=== PATIENT | female | born 1965 | race Caucasian/White ===

== ENCOUNTER 2021-04-23 09:47 | Outpatient (REF) | payer BC, SELFPAY ==
--- NOTE | ~2021-04-23 | MM_ITS ---
EXAMINATION: MM SCREENING DIGITAL BREAST TOMOSYNTHESIS, BILATERAL CLINICAL INFORMATION: Screening. Asymptomatic. The lifetime risk of breast cancer based on the Tyrer-Cuzick Model is 13%. COMPARISON: Mammography: 05/19/2019, 05/04/2018, 02/14/2017 TECHNIQUE: Digital breast tomosynthesis is performed in both the craniocaudal and mediolateral oblique views along with computer-aided detection (CAD). Synthesized 2D images are generated from the tomosynthesis. FINDINGS: The breasts are heterogeneously dense, which may obscure small masses (ACR BI-RADS breast composition Category c). Breast tissue composition borders on average fibroglandular. There are no significant masses, abnormal calcifications, or other abnormalities. There are no significant changes from prior exams. The axilla are unremarkable. The skin contours are smooth. MM/MM tomosynthesis screening BI IMPRESSION: No mammographic evidence of malignancy. ASSESSMENT: BI-RADS 1: Negative RECOMMENDATION: Routine annual mammography screening. This patient's information was entered into a reminder system with a target due date for their next mammogram.
== END 2021-04-23 09:48 | disposition home or self-care (01) ==
LOC: HO.MAMMO 09:47
PROVIDERS: PCP Pediatrics; Visit Provider Obstetrics & Gynecology
DX: Z12.31 Encounter for screening mammogram for malignant neoplasm of breast (principal)
CPT/HCPCS: 77063; 77067

== ENCOUNTER → 2024-12-20 09:15 | Outpatient (BNV) | payer BC, SELFPAY | PROVIDERS: PCP Pediatrics; Visit Provider Internal Medicine | DX: Z12.31 Encounter for screening mammogram for malignant neoplasm of breast (principal) | CPT/HCPCS: 77063; 77067 ==

== ENCOUNTER 2024-12-20 09:24 | Outpatient (REF) | payer BC, SELFPAY ==
--- OUTSIDE RECORDS SUMMARY | 2024-12-20 10:04 | XMS_ITS | Data Portability ---
Author Organization [facility] Main Office Address [address] [facility] [address] [place] [id number] Care Team Providers Care Wire Winding Machine Tender Name Role Phone RANDOLPH MCKOY Primary Care Provider ARELIS JAIN Associate Creative Director JOAQUIN ARCE Plan Checker [phone] JERRY GRANADOS Orthopedic Surgeon [phone] FLAKO ARANDA Liability Claims Representative SWAPNA AVITIA Coloring Room Worker Assessment Encounter Date Assessment Date Assessment LastModified by Organization Details LastModified Time 07/29/2023 07/29/2023 This service was provided using telemedicine. Patient consented to video & audio visit Patient was located in the [facility]. Provider was located in the office. No other persons participated in the telemedicine visit except for the patient unless otherwise indicated here. Total time of visit was 15 minutes. [email or web address] Not available 07/29/2023 14:41:00 08/21/2023 08/21/2023 Discussed with patient the signs/symptoms warranted for a return to office visit and/or an ER visit. Patient understood and agreed with the plan. [email or web address] Not available 08/21/2023 11:36:14 Plan of Treatment Reminders Order Date Submit Date Provider Last Modified By Organization Details Last Modified Time Details Appointments None recorded. Lab CBC w/ auto diff 2024 025 [facility], [address] , [address], [address], 15:48:16 HbA1c (hemoglobin A1c), blood 2024 025 [facility], [address], [address], [place], [address], 5 15:48:16 CMP, serum or plasma 2024 025 [facility], [address], [address], [place], [address], 5 15:48:16 lipid panel, serum 2024 025 [facility] (Centralized Electronic Ordering - All Locations), Patient Can Go To The Location Of Their Choice, 5 15:48:17 TSH, ultra-sensi tive, serum 2024 025 [facility] (Centralized [facility] Ordering - All Locations), Patient Can Go To The Location Of Their Choice, 5 15:48:16 gamma-gluta myl transferase (ggt), serum 2023 024 [facility] (Centralized [facility] Ordering - All Locations), Patient Can Go To The Location Of Their Choice, 4 20:06:25 CMP, serum or plasma 2023 024 [facility] (Centralized [facility] Ordering - All Locations), Patient Can Go To The Location Of Their Choice, 4 20:06:24 HbA1c (hemoglobin A1c), blood 2023 024 [facility] ([facility]ized [facility] Ordering - All Locations), Patient Can Go To The Location Of Their Choice, 4 20:06:24 CBC w/ auto diff 2023 024 [facility] (Centralized [facility] Ordering - All Locations), Patient Can Go To The Location Of Their Choice, 4 20:06:23 HbA1c (hemoglobin A1c), blood 2022 023 [facility], [address], [address], [place], [address], 3 16:21:10 CMP, serum or plasma 2022 023 [facility], [address], [address], [place], [address], 3 16:35:13 CBC w/ auto diff 2022 023 [facility], [address], [address], [place], [address], 3 16:18:09 lipid panel, serum 2022 023 [facility], [address], [address], [place], [address], 3 16:35:14 TSH, serum or plasma 2022 023 [facility], [address], [address], [place], [address], 3 16:29:24 tissue transglutam inase iga Ab, serum 2022 023 [facility], [address], [address], [place], [address], 3 14:50:05 noninvasive colorectal cancer DNA + occult blood screening, QL, stool 2022 023 [facility] (Cologuard Orders Only), [address], [address], , [address], 4 08:18:27 Referral gynecologis t referral - Patient to schedule 2024 025 Swapna Avitia MD, [address], [place], [address], 5 15:56:48 nutritionis t/dietitian referral 2024 025 Not available 5 15:56:48 sleep medicine referral - for eval of fatigue insomnia/sn oring, rule out sleep disordered breathing. 2023 024 [facility], [address] [place], [address], 4 15:19:31 nutritionis t/dietitian referral 2022 023 [facility] Not available 3 16:46:16 Procedures None recorded. Surgeries None recorded. Imaging MAMMO, screening, bilateral - Perform Diagnostic Mammogram and Breast Ultrasound if needed / Perform Ultrasound Guided Aspiration and/or Breast Biopsy if warranted 2024 025 [email or web address] [place], [address] [place] [address] [place], [address], 5 15:56:48 Medication Orders benzonatate 100 mg capsule [address] [facility] #[id number], [address] [place], [address], 4 14:08:33 Zithromax Z-Jacques 250 mg tablet [address] [id number], [address] [place], [address], 4 14:08:02 Patient Targets Encounter Date Encounter Id Patient Goals Patient Target Last Modified By Organization Details Last Modified Time 05/14/2023 [id number] manager terminal goal of Blood Pressure 140 / 90 Not available Not available Not available manager terminal goal of Exercise level Not available Not available Not available [facility] goal of Tobacco Smoking Status Not available Not available Not available [facility] goal of Excess Body Weight Loss % 5 Not available Not available Not available Pt advised and agrees to work on self-monitoring behaviors; begin an appropriate diet for weight loss (such as a low carbohydrate diet), to do moderate exercise (such as walking) for approximately 150 minutes per week; and to identify desirable and timely rewards that will reinforce achievement of specific weight loss goals.Pt advised and agrees to eat a low salt low fat diet; to do moderate exercise (such as walking) 150 minutes per week; to limit alcohol intake (goal of 2 drinks per day or less for men or 1 for woman). and to monitor dietary sodium. Will monitor home blood pressures and bring readings to appointments. Patient preferences and goals incorporated in plan and updated/modified as needed to reflect progress toward goal. pmadden Not available 05/14/2023 10:45:18 Patient Instructions Encounter Date Encounter Id Patient Instructions Last Modified By Organization Details Last Modified Time 05/14/2023 [id number] A healthy lifestyle: care instructions pmadden Not available 05/14/2023 10:57:15 well visit, women 50 to 65: care instructions pmadden Not available 05/14/2023 10:57:15 colon cancer screening: care instructions pmadden Not available 05/14/2023 10:57:15 starting a weight loss plan: care instructions pmadden Not available 05/14/2023 10:57:15 Medications (OTC, herbal therapies, supplements) reviewed and reconciled with patient and or caregiver, including potential side effects, drug interactions, instructions, and the consequences of not taking medication. Reviewed potential barriers to medication adherence, such as side effects from medication or cost of medication. pmadden Not available 05/14/2023 10:44:05 07/29/2023 [id number] cough: care instructions pmadden Not available 07/29/2023 14:40:17 saline nasal washes: care instructions pmadden Not available 07/29/2023 14:40:17 eustachian tube problems: care instructions pmadden Not available 07/29/2023 14:40:17 COVID-19 FAQ pmadden Not available 03/2024 14:35:16 10 things to do when you have covid-19 pmadden Not available 07/29/2023 14:35:16 Follow up if no improvement or if symptoms worsen. pmadden Not available 07/29/2023 14:46:14 01/29/2024 [id number] insomnia: care instructions awychowski Not available 01/29/2024 14:42:58 snoring: care instructions awychowski Not available 01/29/2024 14:49:25 polycythemia: care instructions awychowski Not available 01/29/2024 14:42:58 11/23/2024 [id number] Cervical Cancer Screening awychowski Not available 11/23/2024 15:48:07 prediabetes: care instructions awychowski Not available 11/23/2024 15:48:06 anxiety disorder: care instructions awychowski Not available 11/23/2024 15:48:06 body mass index: care instructions awychowski Not available 11/23/2024 15:48:06 learning about healthy weight awychowski Not available 11/23/2024 15:48:06 starting a weight loss plan: care instructions awychowski Not available 11/23/2024 15:48:06 Reason for Referral 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 Referring Physician: Randolph Mckoy [facility], Encounter Date: 01/29/2024 Aeronautical Engineering Officer/dietitian Refer ral for Body mass index 30+ - obesity Referring Physician: Randolph Mckoy [facility], Encounter Date: 11/23/2024 Coloring Room Worker Referral for Sc reening for malignant neoplasm of cervix Patient to schedule Referring Physician: Randolph Mckoy [facility], Encounter Date: 11/23/2024 Results Created Date Observation Date Name Description Value Unit Range Abnormal Flag Note LastModifiedBy Organization Detail LastModifiedTime 05/14/2005/14/2023 COMPL ETE BLOOD COUNT WBC 5.5 K/mm3 (4.0-1 1.0) Not Available [facility] (Centralized Electronic Ordering - All Locations) Patient Can Go To The Location Of Their Choice, [id number] 05/14/2023 16:18:09 05/14/2005/14/2023 COMPL ETE BLOOD COUNT RBC 5.19 M/mm3 (4.20- 5.40) Not Available [facility] (Centralized Electronic Ordering - All Locations) Patient Can Go To The Location Of Their Choice, [id number] 05/14/2023 16:18:09 05/14/2005/14/2023 COMPL ETE BLOOD COUNT HGB 15.6 gm/dL (11.7- 15.5) high Not Available [facility] (Centralized Electronic Ordering - All Locations) Patient Can Go To The Location Of Their Choice, 05/14/2023 16:18:09 05/14/2005/14/2023 COMPL ETE BLOOD COUNT HCT 46.5 % (35.7- 45.8) high Not Available [facility] (Centralized Electronic Ordering - All Locations) Patient Can Go To The Location Of Their Choice, 05/14/2023 16:18:09 05/14/2005/14/2023 COMPL ETE BLOOD COUNT MCV 89.6 fL (80.0- 100.0) Not Available [facility] (Centralized Electronic Ordering - All Locations) Patient Can Go To The Location Of Their Choice, 05/14/2023 16:18:09 05/14/2005/14/2023 COMPL ETE BLOOD COUNT MCH 30.1 pg (27.0- 34.0) Not Available [facility] (Centralized Electronic Ordering - All Locations) Patient Can Go To The Location Of Their Choice, 05/14/2023 16:18:09 05/14/2005/14/2023 COMPL ETE BLOOD COUNT MCHC 33.5 g/dL (33.0- 37.0) Not Available [facility] (Centralized Electronic Ordering - All Locations) Patient Can Go To The Location Of Their Choice, 05/14/2023 16:18:09 05/14/2005/14/2023 COMPL ETE BLOOD COUNT plt 266 K/mm3 (150-4 60) Not Available [facility] (Centralized Electronic Ordering - All Locations) Patient Can Go To The Location Of Their Choice, 05/14/2023 16:18:09 05/14/2005/14/2023 COMPL ETE BLOOD COUNT RDW-SD 45.4 fL (<47.0 ) Not Available [facility] (Centralized Electronic Ordering - All Locations) Patient Can Go To The Location Of Their Choice, 05/14/2023 16:18:09 05/14/2005/14/2023 COMPL ETE BLOOD COUNT MPV 10.7 fL (9.4-1 2.4) Not Available [facility] (Centralized Electronic Ordering - All Locations) Patient Can Go To The Location Of Their Choice, 05/14/2023 16:18:09 05/14/20 23 05/14/2023 COMPL ETE BLOOD COUNT automated NRBC 0.0 #/100 _WBC' s Not Available [facility] (Centralized Electronic Ordering - All Locations) Patient Can Go To The Location Of Their Choice, 05/14/2023 16:18:09 05/14/2005/14/2023 COMPL ETE BLOOD COUNT abs. NRBC 0.0 K/mm3 Not Available [facility] (Centralized Electronic Ordering - All Locations) Patient Can Go To The Location Of Their Choice, 05/14/2023 16:18:09 05/14/2005/14/2023 HEMOG LOBIN A1C hemoglobin A1C 5.7 % (4.0-5 .6) high MONIT ORING : In known diabe tic patie nts, hemog lobin A1c targe ts shoul d be discu ssed with healt h care provi shante. DIAGN OSTIC USE: The Ameri can Diabe aundrea Assoc iatio n (ADA) and the World [facility] izati on (WHO) recom mend the use of HbA1c to diagn ose diabe aundrea using a thres hold of 6.5%. Patie nts who have an HbA1c betwe en 5.7% and 6.4% are consi dered at incre ased risk for devel oping diabe aundrea in the futur eViolette MARCUMTI ON: False ly low HbA1c resul ts may be obser janeth in patie nts with hemol ytic anemi a, homoz ygous forms of abnor mal hemog lobin (e.g. SS, CC, SC), pregn chris, recen t blood loss or hemog lobin F great er than 7%. Fruct osami ne may be used as an alter estela test in these cases . REFER ENCE: ADA: Stand ards of Medic al Care in Diabe aundrea 2019, The Journ al of Clini julianne and Appli ed Resea [facility] and Educa tion Volum e 43, Suppl ement 1 Not Available [facility] (Centralized Electronic Ordering - All Locations) Patient Can Go To The Location Of Their Choice, 05/14/2023 16:21:10 05/14/2005/14/2023 TSH WITH REFLE X TO FT4 TSH 1.50 uIU/m L (0.4-4 .2) Not Available [facility] (Centralized Electronic Ordering - All Locations) Patient Can Go To The Location Of Their Choice, 05/14/2023 16:29:24 05/14/2005/14/2023 COMPR EHENS CHANCE METAB OLIC PANL glucose 99 mg/dL (70-99 ) Not Available [facility] (Centralized Electronic Ordering - All Locations) Patient Can Go To The Location Of Their Choice, 05/14/2023 16:35:13 05/14/2005/14/2023 COMPR EHENS CHANCE METAB OLIC PANL BUN 14 mg/dL (6-20) Not Available [facility] (Centralized Electronic Ordering - All Locations) Patient Can Go To The Location Of Their Choice, 05/14/2023 16:35:13 05/14/2005/14/2023 COMPR EHENS CHANCE METAB OLIC PANL creatinine 0.7 mg/dL (0.5-1 .0) Not Available [facility] (Centralized Electronic Ordering - All Locations) Patient Can Go To The Location Of Their Choice, 05/14/2023 16:35:13 05/14/2005/14/2023 COMPR EHENS CHANCE METAB OLIC PANL sodium 139 mmol/ L (133-1 45) Not Available [facility] (Centralized Electronic Ordering - All Locations) Patient Can Go To The Location Of Their Choice, 05/14/2023 16:35:13 05/14/2005/14/2023 COMPR EHENS CHANCE METAB OLIC PANL potassium 4.2 mmol/ L (3.6-5 .2) Not Available [facility] (Centralized Electronic Ordering - All Locations) Patient Can Go To The Location Of Their Choice, 05/14/2023 16:35:13 05/14/2005/14/2023 COMPR EHENS CHANCE METAB OLIC PANL chloride 102 mmol/ L (98-10 7) Not Available [facility] (Centralized Electronic Ordering - All Locations) Patient Can Go To The Location Of Their Choice, 05/14/2023 16:35:13 05/14/2005/14/2023 COMPR EHENS CHANCE METAB OLIC PANL bicarbonate 26 mmol/ L (22-29 ) Not Available [facility] (Centralized Electronic Ordering - All Locations) Patient Can Go To The Location Of Their Choice, 05/14/2023 16:35:13 05/14/2005/14/2023 COMPR EHENS CHANCE METAB OLIC PANL anion gap 11 (4-17) Not Available [facility] (Centralized Electronic Ordering - All Locations) Patient Can Go To The Location Of Their Choice, 05/14/2023 16:35:13 05/14/2005/14/2023 COMPR EHENS CHANCE METAB OLIC PANL albumin 5.0 gm/dL (3.4-4 .8) high Not Available [facility] (Centralized Electronic Ordering - All Locations) Patient Can Go To The Location Of Their Choice, 05/14/2023 16:35:13 05/14/2005/14/2023 COMPR EHENS CHANCE METAB OLIC PANL calcium 10.0 mg/dL (8.6-1 0.5) Not Available [facility] (Centralized Electronic Ordering - All Locations) Patient Can Go To The Location Of Their Choice, 05/14/2023 16:35:13 05/14/2005/14/2023 COMPR EHENS CHANCE METAB OLIC PANL bilirubin,to josephine 0.8 mg/dL (0-1.2 ) Not Available [facility] (Centralized Electronic Ordering - All Locations) Patient Can Go To The Location Of Their Choice, 05/14/2023 16:35:13 05/14/2005/14/2023 COMPR EHENS CHANCE METAB OLIC PANL total protein 7.6 gm/dL (6.2-8 .2) Not Available [facility] (Centralized Electronic Ordering - All Locations) Patient Can Go To The Location Of Their Choice, 05/14/2023 16:35:13 05/14/2005/14/2023 COMPR EHENS CHANCE METAB OLIC PANL Ag ratio 1.9 Not Available [facility] (Centralized Electronic Ordering - All Locations) Patient Can Go To The Location Of Their Choice, 05/14/2023 16:35:13 05/14/2005/14/2023 COMPR EHENS CHANCE METAB OLIC PANL AST 33 U/L (0-32) high Not Available [facility] (Centralized Electronic Ordering - All Locations) Patient Can Go To The Location Of Their Choice, 05/14/2023 16:35:13 05/14/2005/14/2023 COMPR EHENS CHANCE METAB OLIC PANL alk phos 111 U/L (35-10 4) high Not Available [facility] (Centralized Electronic Ordering - All Locations) Patient Can Go To The Location Of Their Choice, 05/14/2023 16:35:13 05/14/2005/14/2023 COMPR EHENS CHANCE METAB OLIC PANL ALT 40 U/L (0-33) high Not Available [facility] (Centralized Electronic Ordering - All Locations) Patient Can Go To The Location Of Their Choice, 05/14/2023 16:35:13 05/14/2005/14/2023 COMPR EHENS CHANCE METAB OLIC PANL estimated GFR creatinine 103 mL/mi n/1.7 3_M2 Creat inine based estim ated glome rular filtr ation (eGFR ) in adult s is calcu lated using the Natio nal Kidne y Found ation recom bismark d 2020 CKD-E PI equat ion. Estim ates GFR from serum creat inine , age and sex. Not Available [facility] (Centralized Electronic Ordering - All Locations) Patient Can Go To The Location Of Their Choice, 05/14/2023 16:35:13 05/14/2005/14/2023 LIPID PANEL cholesterol, total 240 mg/dL (<200) high Not Available [facility] ([facility] - All Locations) Patient Can Go To The Location Of Their Choice, 05/14/2023 16:35:14 05/14/2005/14/2023 LIPID PANEL triglyceride 173 mg/dL (<150) high Not Available [facility] Locations) Patient Can Go To The Location Of Their Choice, 05/14/2023 16:35:14 05/14/2005/14/2023 LIPID PANEL HDL chol 57 mg/dL (>39) Not Available [facility] (Centralized Electronic Ordering - All Locations) Patient Can Go To The Location Of Their Choice, 05/14/2023 16:35:14 05/14/2005/14/2023 LIPID PANEL LDL cholesterol, calculated 148 mg/dL (0-130 ) high Not Available [facility] (Centralized Electronic Ordering - All Locations) Patient Can Go To The Location Of Their Choice, 05/14/2023 16:35:14 05/14/20 23 05/14/2023 LIPID PANEL non HDL cholesterol (calc) 183 mg/dL (<160) high Not Available [facility] ([facility] Order[facility] - All Locations) Patient Can Go To The Location Of Their Choice, 05/14/2023 16:35:14 05/14/2005/15/2023 TISSU E TRANS GLUTA MELINA E IGA tissue transglutami nase IgA <0.5 U/mL (0-14. 9) A negat chance tTG IgA resul t in an untre ated patie nt does not rule out venice c disea se. This findi ng can often be expla ined by selec tive IgA defic iency . Testi ng perfo rmed by the Bio-R ad BioPl ex 2200 multi plex flow immun oassa y syste m Not Available [facility] (Centralized Electronic Ordering - All Locations) Patient Can Go To The Location Of Their Choice, 05/15/2023 14:50:05 08/08/19 24 08/08/2023 COMPL ETE BLOOD COUNT WBC 6.0 K/mm3 (4.0-1 1.0) Not Available [facility] (Centralized Electronic Ordering - All Locations) Patient Can Go To The Location Of Their Choice, 08/08/2023 15:50:35 08/08/19 24 08/08/2023 COMPL ETE BLOOD COUNT RBC 5.14 M/mm3 (4.20- 5.40) Not Available [facility] ([facility]ized Electronic Ordering - All Locations) Patient Can Go To The Location Of Their Choice, 08/08/2023 15:50:35 08/08/19 24 08/08/2023 COMPL ETE BLOOD COUNT HGB 14.9 gm/dL (11.7- 15.5) Not Available [facility] ([facility]ized Electronic Ordering - All Locations) Patient Can Go To The Location Of Their Choice, 08/08/2023 15:50:35 08/08/1908/08/2023 COMPL ETE BLOOD COUNT HCT 46.4 % (35.7- 45.8) high Not Available [facility] ([facility]ized Electronic Ordering - All Locations) Patient Can Go To The Location Of Their Choice, 08/08/2023 15:50:35 08/08/1908/08/2023 COMPL ETE BLOOD COUNT MCV 90.3 fL (80.0- 100.0) Not Available [facility] (Centralized Electronic Ordering - All Locations) Patient Can Go To The Location Of Their Choice, 08/08/2023 15:50:35 08/08/1908/08/2023 COMPL ETE BLOOD COUNT MCH 29.0 pg (27.0- 34.0) Not Available [facility] ([facility]ized Electronic Ordering - All Locations) Patient Can Go To The Location Of Their Choice, 08/08/2023 15:50:35 08/08/1908/08/2023 COMPL ETE BLOOD COUNT MCHC 32.1 g/dL (33.0- 37.0) low Not Available [facility] ([facility]ized Electronic Ordering - All Locations) Patient Can Go To The Location Of Their Choice, 08/08/2023 15:50:35 08/08/1908/08/2023 COMPL ETE BLOOD COUNT plt 303 K/mm3 (150-4 60) Not Available [facility] (Centralized Electronic Ordering - All Locations) Patient Can Go To The Location Of Their Choice, 08/08/2023 15:50:35 08/08/1908/08/2023 COMPL ETE BLOOD COUNT RDW-SD 45.0 fL (<47.0 ) Not Available [facility] (Centralized Electronic Ordering - All Locations) Patient Can Go To The Location Of Their Choice, 08/08/2023 15:50:35 08/08/1908/08/2023 COMPL ETE BLOOD COUNT MPV 10.1 fL (9.4-1 2.4) Not Available [facility] ([facility]ized Electronic Ordering - All Locations) Patient Can Go To The Location Of Their Choice, 08/08/2023 15:50:35 08/08/1908/08/2023 COMPL ETE BLOOD COUNT automated NRBC 0.0 #/100 _WBC' s Not Available [facility] (Centralized Electronic Ordering - All Locations) Patient Can Go To The Location Of Their Choice, 08/08/2023 15:50:35 08/08/1908/08/2023 COMPL ETE BLOOD COUNT abs. NRBC 0.0 K/mm3 Not Available [facility] (Centralized Electronic Ordering - All Locations) Patient Can Go To The Location Of Their Choice, 08/08/2023 15:50:35 08/08/1908/09/2023 ERYTH ROPOI ETIN erythropoiet in 6.7 Refer ence range : 2.6 to 18.5 Unit: mIU/m L (NOTE ) Beckm an Coult er UniCe l DxI 800 Immun oassa y Syste m Value s obtai rose with diffe rent assay metho ds or kits canno t be used inter khoury eably . Resul ts canno t be inter prete d as absol usama evide nce of the prese nce or absen ce of martínez ji se. Test perfo rmed by [facility], [address], [place] [address] Not Available [facility] (Centralized Electronic Ordering - All Locations) Patient Can Go To The Location Of Their Choice, 08/09/2023 08:08:19 08/08/1908/14/2023 JAK2 V617F MUTAT ION W/INT ERPRE TATIO N jak2 mutation analysis (neg) normal NEGAT CHANCE NEGAT CHANCE FOR THE V617F MUTAT ION This mark sis did NOT ident yvrose the prese nce of the V617F mutat ion in eithe r the heter ozygo us or homoz ygous state . This mutat ion can be assoc iated with certa in myelo proli ferat chance/m yelod yspla stic neopl asms and/o r incre ased throm bophi maribel risk. This resul t shoul d be inter prete d in combi natio n with other clini julianne and labor atory findi ngs. The somat ic point mutat ion at codon 617 withi n the JAK2 gene resul ts in a pheny lalan ine subst ituti on for valpaola e. This mutat ion resul ts in const ituti ve JAK2 activ ity and enhan claudine JAK2- STAT signa ling. DNA extra cted from perip heral blood leuko cytes was mark zed by real- time PCR using the [employer] z480. Fluor escen tly label ed probe s were utili zed for allel ic discr imina tion. This assay 's lower limit of detec tion will ident yvrose a 5.0% popul ation of mutan t allel es in a backg round of wild type allel es. While DNA testi ng is very accur ate, rare diagn ostic error s due to vario us pre- and post- mark tical varia bles do occur . Refer ences : Jake t. 365:1 054-1 061, 2004, Blood . 106: 2162- 2168, 2004, Who Class ifica tion of [place] rs of Haema topoi etic and Lymph oid Tissu e. 4th ed., [facility] on, 2007. This test was devel oped and it's perfo rmanc e terri cteri stics deter mined by Kaila ate Refer ence Labor atori es. It has not been clear ed or appro janeth by the [place] FDA. The FDA has deter mined that such clear ance is not neces karol. This labor atory is certi fied under CLIA 88 as quali fied to perfo rm high compl exity clini julianne labor atory testi ng. Not Available [facility] (Centralized Electronic Ordering - All Locations) Patient Can Go To The Location Of Their Choice, [id number] 08/14/2023 13:39:05 08/08/19 24 08/14/2023 JAK2 V617F MUTAT ION W/INT ERPRE TATIO N jak2 pathologist INTERP RETED BY NERI IN [facility] [place] Not Available [facility] (Centralized Electronic Ordering - All Locations) Patient Can Go To The Location Of Their Choice, [id number] 08/14/2023 13:39:05 01/29/20 24 01/30/2024 CBC WITH DIFFE RENTI AL/PL ATELE T WBC 6.9 x10e3 /uL 3.4-10 .8 Not Available [facility] ([facility]) [address] [facility] [address], [place], [address], 01/30/2024 20:06:23 01/29/20 24 01/30/2024 CBC WITH DIFFE RENTI AL/PL ATELE T RBC 5.13 x10e6 /uL 3.77-5 .28 Not Available [facility] ([facility]) [address] [facility], [place] [place], [address], 01/30/2024 20:06:23 01/29/20 24 01/30/2024 CBC WITH DIFFE RENTI AL/PL ATELE T hemoglobin 15.3 g/dL 11.1-1 5.9 Not Available [facility] ([facility]) [address] [facility], [place], [address], 01/30/2024 20:06:23 01/29/20 24 01/30/2024 CBC WITH DIFFE RENTI AL/PL ATELE T hematocrit 48.5 % 34.0-4 6.6 above high normal Not Available [facility] ([facility]) [address] [place], [address], 01/30/2024 20:06:23 01/29/20 24 01/30/2024 CBC WITH DIFFE RENTI AL/PL ATELE T MCV 95 fL 79-97 Not Available [facility] ([facility]) [address] [place], [address], 01/30/2024 20:06:23 01/29/20 24 01/30/2024 CBC WITH DIFFE RENTI AL/PL ATELE T MCH 29.8 pg 26.6-3 3.0 Not Available [facility] ([facility]) [address] [place], [address], 01/30/2024 20:06:23 01/29/20 24 01/30/2024 CBC WITH DIFFE RENTI AL/PL ATELE T MCHC 31.5 g/dL 31.5-3 5.7 Not Available [facility] ([facility]) [address] [facility], [place], [address], 01/30/2024 20:06:23 01/29/20 24 01/30/2024 CBC WITH DIFFE RENTI AL/PL ATELE T RDW 13.9 % 11.7-1 5.4 Not Available [facility] ([facility]) [address] [facility], [place], [address], 01/30/2024 20:06:23 01/29/20 24 01/30/2024 CBC WITH DIFFE RENTI AL/PL ATELE T platelets 259 x10e3 /uL 150-45 0 Not Available [facility] ([facility]) [address] [facility], [place], [address], 01/30/2024 20:06:23 01/29/20 24 01/30/2024 CBC WITH DIFFE RENTI AL/PL ATELE T neutrophils 60 % not estab. Not Available [facility] ([facility]) [address] [facility], [place], [address], 01/30/2024 20:06:23 01/29/20 24 01/30/2024 CBC WITH DIFFE RENTI AL/PL ATELE T lymphs 25 % not estab. Not Available [facility] ([facility]) [address] [facility], [place], [address], 01/30/2024 20:06:23 01/29/20 24 01/30/2024 CBC WITH DIFFE RENTI AL/PL ATELE T monocytes 6 % not estab. Not Available [facility] ([facility]) [address] [facility], [place], [address], 01/30/2024 20:06:23 01/29/20 24 01/30/2024 CBC WITH DIFFE RENTI AL/PL ATELE T eos 8 % not estab. Not Available [facility] ([facility]) [address] [facility], [place], [address], 01/30/2024 20:06:23 01/29/20 24 01/30/2024 CBC WITH DIFFE RENTI AL/PL ATELE T basos 1 % not estab. 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 0 Not Available [facility] ([facility]) [address] [place], [address], 01/30/2024 20:06:23 01/29/20 24 01/30/2024 CBC WITH DIFFE RENTI AL/PL ATELE T lymphs (absolute) 1.7 x10e3 /uL 0.7-3. 1 Not Available [facility] ([facility]) [address] [place], [address], 01/30/2024 20:06:23 01/29/20 24 01/30/2024 CBC WITH DIFFE RENTI AL/PL ATELE T monocytes(ab solute) 0.4 x10e3 /uL 0.1-0. 9 Not Available [facility] ([facility]) [address] [place], [address], 01/30/2024 20:06:23 01/29/20 24 01/30/2024 CBC WITH DIFFE RENTI AL/PL ATELE T eos (absolute) 0.6 x10e3 /uL 0.0-0. 4 above high normal Not Available [facility] ([facility]) [address] [place], [address], 01/30/2024 20:06:23 01/29/20 24 01/30/2024 CBC WITH DIFFE RENTI AL/PL ATELE T baso (absolute) 0.1 x10e3 /uL 0.0-0. 2 Not Available [facility] ([facility]) [address] [facility], [place], [address], 01/30/2024 20:06:23 01/29/20 24 01/30/2024 CBC WITH DIFFE RENTI AL/PL ATELE T immature granulocytes 0 % not estab. Not Available [facility] ([facility]) [address] [facility], [place], [address], 01/30/2024 20:06:23 01/29/20 24 01/30/2024 CBC WITH DIFFE RENTI AL/PL ATELE T immature grans (abs) 0.0 x10e3 /uL 0.0-0. 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 METAB OLIC PANEL (14) glucose 110 mg/dL 70-99 above high normal Not Available [facility] ([facility]) [address] [facility], [place], [address], 01/30/2024 20:06:24 01/29/20 24 01/30/2024 COMP. METAB OLIC PANEL (14) BUN 14 mg/dL 6-24 Not Available [facility] ([facility]) [address] [facility], [place], [address], 01/30/2024 20:06:24 01/29/20 24 01/30/2024 COMP. METAB OLIC PANEL (14) creatinine 0.64 mg/dL 0.57-1 .00 Not Available [facility] ([facility]) [address] [facility], [place], [address], 01/30/2024 20:06:24 01/29/20 24 01/30/2024 COMP. METAB OLIC PANEL (14) eGFR 103 mL/mi n/1.7 3 >59 Not Available [facility] ([facility]) [address] [place], [address], 01/30/2024 20:06:24 01/29/20 24 01/30/2024 COMP. METAB OLIC PANEL (14) BUN/creatini ne ratio 22 9-23 Not Available [facility] ([facility]) [address] [place], [address], 01/30/2024 20:06:24 01/29/20 24 01/30/2024 COMP. METAB OLIC PANEL (14) sodium 143 mmol/ L 134-14 4 Not Available [facility] ([facility]) [address] [place], [address], 01/30/2024 20:06:24 01/29/20 24 01/30/2024 COMP. METAB OLIC PANEL (14) potassium 3.9 mmol/ L 3.5-5. 2 Not Available [facility] ([facility]) [address] [place], [address], 01/30/2024 20:06:24 01/29/20 24 01/30/2024 COMP. METAB OLIC PANEL (14) chloride 101 mmol/ L 96-106 Not Available [facility] ([facility]) [address] [facility] [place] [address], 01/30/2024 20:06:24 01/29/20 24 01/30/2024 COMP. METAB OLIC PANEL (14) carbon dioxide, total 25 mmol/ L 20-29 Not Available [facility] ([facility]) [address] [facility] [place], [address], 01/30/2024 20:06:24 01/29/20 24 01/30/2024 COMP. METAB OLIC PANEL (14) calcium 10.1 mg/dL 8.7-10 .2 Not Available [facility] ([facility]) [address] [facility], [place], [address], 01/30/2024 20:06:24 01/29/20 24 01/30/2024 COMP. METAB OLIC PANEL (14) protein, total 7.5 g/dL 6.0-8. 5 Not Available [facility] ([facility]) [address] [facility] [place], [address], 01/30/2024 20:06:24 01/29/20 24 01/30/2024 COMP. METAB OLIC PANEL (14) albumin 4.6 g/dL 3.8-4. 9 Not Available [facility] ([facility]) [address] [facility] [place], [address], 01/30/2024 20:06:24 01/29/20 24 01/30/2024 COMP. METAB OLIC PANEL (14) globulin, total 2.9 g/dL 1.5-4. 5 Not Available [facility] ([facility]) [address] [facility] [place], [address], 01/30/2024 20:06:24 01/29/20 24 01/30/2024 COMP. METAB OLIC PANEL (14) bilirubin, total 0.4 mg/dL 0.0-1. 2 Not Available [facility] ([facility]) [address] [place], [address], 01/30/2024 20:06:24 01/29/20 24 01/30/2024 COMP. METAB OLIC PANEL (14) alkaline phosphatase 120 IU/L 44-121 Not Available [facility] ([facility]) [address] [place], [address], 01/30/2024 20:06:24 01/29/20 24 01/30/2024 COMP. METAB OLIC PANEL (14) AST (SGOT) 25 IU/L 0-40 Not Available [facility] ([facility]) [address] [place], [address], 01/30/2024 20:06:24 01/29/20 24 01/30/2024 COMP. METAB OLIC PANEL (14) ALT (SGPT) 29 IU/L 0-32 Not Available [facility] ([facility]) [address] [facility], [place], [address], 01/30/2024 20:06:24 01/29/20 24 01/30/2024 HEMOG LOBIN A1C hemoglobin A1C 5.9 % 4.8-5. 6 above high normal Predi abete s: 5.7 - 6.4 Diabe aundrea: >6.4 Glyce viral contr ol for adult s with diabe aundrea: <7.0 Not Available [facility] ([facility]) [address] [place], [address], 01/30/2024 20:06:24 01/29/20 24 01/30/2024 GGT GGT 15 IU/L 0-60 Not Available [facility] ([facility]) [address] [place], [address], 01/30/2024 20:06:25 11/26/19 25 04/23/2021 MAMMO , scree ricco, bilat eral No observ ation record ed. [email or web address] [facility] [address] [place], [address], 11/25/2024 14:37:52 Result Notes None recorded. Problems Name Problem SNOMED Code Status Onset Date Resolution Date Notes Provider Name and Address Organization Details Recorded Time Screenin g for malignan t neoplasm of cervix Completed 201202/28/2014 RECORDED 3 2:48PM BY LAURA TARIQ MA, ANNABEL Reynolds/LUIS Mckoy MD [address] [facility] [address], [facility] [place], [address], [facility] 6 15:10:48 Contrace ption care manageme nt Completed 201202/28/2014 IMPRESSIO N: TOLERATIN G WELL. RX REFILLED. ; RECORDED 3 2:48PM BY LAURA TARIQ MA, ANNOTATIO N/LUIS Mckoy MD [address] [facility] [address], [place], [address], [facility] 6 15:10:48 Dysuria [id number] Completed 201202/28/2014 IMPRESSIO N: UA UNREMARKA BLE, AND PT HAS HISTORY OF CYSTITIS. DIETARY MODIFICAT IONS DISCUSSED . REFER BACK TO UROLOGY IF PERSISTAN T/WORSE.; RECORDED 3 2:48PM BY LAURA TARIQ MA, ANNOTATIO N/LUIS Mckoy MD [address], [place] [place], [address], [facility] 6 15:10:48 Elevated blood-pr essure reading without diagnosi s of hyperten lino [id number] Completed 201202/28/2014 RECORDED 3 2:48PM BY LAURA TARIQ MA, ANNOTATIO N/LUIS Mckoy MD [address] [facility] [address], [place], [address], [facility] 6 15:10:48 Adult health examinat ion Completed 201202/28/2014 IMPRESSIO N: WILL UPDATE IMMUNIZAT ION STATUS AND SCREEN BASED ON RISK FACTORS. REGULAR DENTAL CARE AND SEATBELT USE ADVISED. DISTRACTE D DRIVING DISCUSSED . PT REPORTS THAT ROUTINE PAP IS UTD. WILL ATTEMPT TO TRACK DOWN RECORDS FROM DR JAMIL .; RECORDED 3 2:48PM BY LAURA TARIQ MA, ANNABEL Reynolds/LUIS Mckoy MD [address], [place], [address], [facility] 6 15:10:48 Pure hypergly ceridemi a [id number] Completed 201302/28/2014 IMPRESSIO N: WILL REASSESS AND IF PERSISTAN T WITH ADEQUATE FASTING WILL DISCUSS TREATMENT OPTIONS.; RECORDED 4 3:33PM BY ANNABEL CANTU/LUIS Mckoy MD [address], [place], [address], [facility] 6 15:10:48 Knee pain Completed 201308/17/2014 RECORDED 4 4:25PM BY ELOY KENNEDY PA-C, OFFICE VISIT Randolph Mckoy MD [address] [facility] [address], [place], [address], [facility] 5 15:41:46 Low back pain 374996307 Completed 201306/30/2018 Randolph Mckoy MD [address], [place], [address], [facility] 8 14:56:47 Administ ration of diphther ia and tetanus vaccine Completed 201202/28/2014 RECORDED 3 2:47PM BY LAUAR TARIQ MA, ANNABEL Reynolds/LUIS Mckoy MD [address], [place], [address], [facility] 6 15:10:48 Backache 379893501 Completed 10/16/2015 Randolph Mckoy MD [address], [place], [address], [facility] 6 15:10:48 Disorder of lumbar disc 973525024 Active L4/L5, L5/S1 without nerve impingmen t Randolph Mckoy MD [address], [place], [address], [facility] 6 15:10:48 Body mass index 25-29 - overweig ht 579602167 Completed 11/29/2016 Randolph Mckoy MD [address], [place], [address], [facility] 7 14:55:52 Achilles tendinit is 69677132 Active Randolph Mckoy MD [address], [place], [address], [facility] 6 15:10:48 Fatigue 95045356 Completed 10/16/2015 Randolph Mckoy MD [address], [place], [address], [facility] 6 15:10:48 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 907345428 Completed 11/29/2016 Randolph Mckoy MD [address], [place], [address], [facility] 7 14:55:38 Loose stool 460626725 Completed 10/16/2015 Randolph Mckoy MD [address], [place], [address], [facility] 6 15:10:48 Neck pain 74999580 Completed 06/30/2018 Randolph Mckoy MD [address], [place], [address], [facility] 8 14:57:19 Hypercho lesterol emia 97828258 Active Randolph Mckoy MD [address], [place], [address], [facility] 6 15:10:48 Hypertri glycerid emia 878747303 Active Randolph Mckoy MD [address], [place], [address], [facility] 6 16:55:09 Hirsutis m 093263875 Active Randolph Mckoy MD [address], [place], [address], [facility] 6 15:10:48 Verruca plantari s 92594271 Completed 06/30/2018 Randolph Mckoy MD [address], [place], [address], [facility] 8 14:57:01 Indigest ion 059227021 Completed 06/30/2018 Randolph Mckoy MD [address], [place], [address], [facility] 8 14:55:38 Eosinoph ilic esophagi tis 551754203 Active Randolph Mckoy MD [address], [place], [address], [facility] 6 15:10:48 Knee pain Completed 11/23/2024 Randolph Mckoy MD [address], [place], [address], [facility] 5 15:41:46 Hemorrho ids 99232385 Active Randolph Mckoy MD [address], [place], [address], [facility] 6 15:10:48 Upper respirat ory infectio n 32706763 Completed 10/16/2015 Randolph Mckoy MD [address] [facility] [address], [place], [address], [facility] 6 15:10:48 Influenz a-like illness 71855205 Completed 10/16/2015 Randolph Mckoy MD [address] [facility] [address], [place], [address], [facility] 6 15:10:48 Dizzines s 337628229 Completed 11/29/2016 Randolph Mckoy MD [address] [facility] [address], [place], [address], [facility] 7 14:53:58 Benign paroxysm al position al vertigo 715731967 Active Randolph Mckoy MD [address] [facility] [address], [place], [address], [facility] 6 12:25:53 Vertigo 181233454 Completed 06/30/2018 Randolph Mckoy MD [address] [facility] [address], [place], [address], [facility] 8 14:54:47 Genital herpes simplex 47579662 Active 2016 Randolph Mckoy MD [address] [facility] [address], [place], [address], [facility] 7 15:05:40 Disorder of patellof emoral joint 450340675 Active 2016 Randolph Mckoy MD [address] [facility] [address], [place], [address], [facility] 7 21:32:15 Ganglion cyst Completed 201710/05/2020 feet Randolph Mckoy MD [address], [place], [address], [facility] 1 14:28:44 Gastroes ophageal reflux disease 163027952 Active 2017 Randolph Mckoy MD [address], [place], [address], [facility] 8 14:55:47 Plantar fasciiti s 432578710 Completed 201811/23/2024 bilateral Randolph Mckoy MD [address], [place], [address], [facility] 5 15:42:12 Calcanea l spur 38574235 Active 2018 Randolph Mckoy MD [address], [place], [address], [facility] 9 22:34:09 Hammer toe 245504674 Active 2018 Randolph Mckoy MD [address], [place], [address], [facility] 9 22:34:23 Fibromya lgia 337403535 Active 2018 Randolph Mckoy MD [address], [place], [address], [facility] 9 22:43:08 Moderate major depressi on, single episode 92736260 Active 2019 America herrera, [facility] 0 11:26:25 Body mass index 30+ - obesity 422885071 Active 2020 Randolph Mckoy MD [address], [place], [address], [facility] 5 15:31:55 Impaired fasting glycemia 678164910 Active 2020 Randolph Mckoy MD [address], [place], [address], [facility] 1 17:00:09 Liver enzymes outside referenc e range 318804790 Completed 202011/23/2024 Randolph Mckoy MD [address], [place], [address], [facility] 5 15:42:02 Steatoti c liver disease 419228356 Active 2021 Randolph Mckoy MD [address], [place], [address], [facility] 2 14:32:17 Hiatal hernia 58919421 Active 2021 type 1 Randolph Mckoy MD [address], [place], [address], [facility] 2 17:02:45 Esophage al dysmotil ity 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 Active 2021 Randolph Mckoy MD [address], [place], [address], [facility] 2 17:02:54 Prediabe aundrea 437681084 Active 2022 Bakari Cabrera PA-C [address], [place], [address], [facility] 3 10:55:57 Erythroc ytosis 764253435 Active 2022 Bakari Cabrera PA-C [address], [place], [address], [facility] 3 09:01:45 Anxiety state 740918140 Active 2013 Randolph Mckoy MD [address], [place], [address], [facility] 6 15:10:48 Screenin g for malignan t neoplasm of cervix Completed 201202/01/2014 RECORDED 3 2:48PM BY LAURA TARIQ MA, ANNABEL Reynolds/LUIS Mckoy MD [address] [facility] [address], [place], [address], [facility] 6 15:10:48 Contrace ption care manageme nt Completed 201202/01/2014 IMPRESSIO N: TOLERATIN G WELL. RX REFILLED. ; RECORDED 3 2:48PM BY LAURA TARIQ MA, ANNABEL Reynolds/LUIS Mckoy MD [address] [facility] [address], [place] [place], [address], [facility] 6 15:10:48 Cystitis 80169972 Completed 201311/23/2024 Randolph Mckoy MD [address] [facility] [address], [place], [address], [facility] 5 15:40:43 Dysuria 90403405 Completed 201202/01/2014 IMPRESSIO N: UA UNREMARKA BLE, AND PT HAS HISTORY OF CYSTITIS. DIETARY MODIFICAT IONS DISCUSSED . REFER BACK TO UROLOGY IF PERSISTAN T/WORSE.; RECORDED 3 2:48PM BY LAURA TARIQ MA, ANNABEL Reynolds/LUIS Mckoy MD [address] [facility] [address], [place] [place], [address], [facility] 6 15:10:48 Elevated blood-pr essure reading without diagnosi s of hyperten lino 162466349 Completed 201202/01/2014 RECORDED 3 2:48PM BY LAURA TARIQ MA, ANNABEL Reynolds/LUIS Mckoy MD [address] [facility] [address], [place], [address], [facility] 6 15:10:48 Adult health examinat ion Completed 201202/01/2014 IMPRESSIO N: WILL UPDATE IMMUNIZAT ION STATUS AND SCREEN BASED ON RISK FACTORS. REGULAR DENTAL CARE AND SEATBELT USE ADVISED. DISTRACTE D DRIVING DISCUSSED . PT REPORTS THAT ROUTINE PAP IS UTD. WILL ATTEMPT TO TRACK DOWN RECORDS FROM DR JAMIL .; RECORDED 3 2:48PM BY LAURA TARIQ MA, ANNABEL Reynolds/LUIS Mckoy MD [address], [place], [address], [facility] 6 15:10:48 Pure hypergly ceridemi a 928088623 Completed 201202/01/2014 IMPRESSIO N: WILL REASSESS AND IF PERSISTAN T WITH ADEQUATE FASTING WILL DISCUSS TREATMENT OPTIONS.; RECORDED 3 4:06PM BY RANDOLPH MCKOY MD, ANNABEL Reynolds/LUIS Mckoy MD [address], [place], [address], [facility] 6 15:10:48 Insomnia 897536568 Active 2013 Randolph Mckoy MD [address], [place], [address], [facility] 6 15:10:48 Patient status finding [id number] Completed 201202/01/2014 RECORDED 3 2:48PM BY LAURA TARIQ MA, ANNABEL Reynolds/LUIS Mckoy MD [address], [place], [address], [facility] 6 15:10:48 Obesity 840371884 Completed 201311/29/2016 Randolph Mckoy MD [address], [place], [address], [facility] 7 14:56:17 Palpitat ions 23683226 Completed 201308/17/2014 IMPRESSIO N: PT HAS HAD A NL ECHO/ECG IN THE PAST. HOLTER MONITOR DISCUSSED /OFFERED ALTHOUGH I SUSPECT UNDERLYIN G ANXIETY MAY BE CONTRIBUT ING HERE. PT WILL CALL IF INTERESTE D IN PURSUING OR SYMPTOMS WORSEN/CH ZAC.; RECORDED 4 3:33PM BY ALO RICHMOND, OFFICE VISIT Randolph Mckoy MD [address], [facility] [place], [address], [facility] 6 15:10:48 Administ ration of diphther ia and tetanus vaccine Completed 201202/01/2014 RECORDED 3 2:47PM BY LAURA TARIQ MA, ANNOTATIO N/ADDENDU M Randolph Mckoy MD [address] [facility] [address], [place], [address], [facility] 6 15:10:48 Problem Notes None recorded. Procedures Surgical History Date Name Laterality Status Provider Name and Address Organization Details Recorded Time 024 Cologuard completed Ana María Squires [facility] 04/02/2024 10:30:46 021 Most Recent Mammogram completed Marlene Frank [facility] 12/12/2021 10:02:57 021 [facility] 10:02:48 021 Date of Last Pap Smear completed Wanda Pac [facility] 10/19/2020 12:58:31 019 injection of foot completed Randolph Mckoy MD [address] [facility] [address], [place], [address], [facility] 01/13/2019 22:39:19 017 Mammogram one breast completed Reena vasquez [facility] 04/09/2017 11:53:14 014 Date of Last Colonoscopy completed Laura Tariq MA [facility] 11/29/2016 14:30:46 014 Colonoscopy completed Laura Tariq MA [facility] 11/29/2016 14:30:30 014 EGD completed Randolph Mckoy MD [address], [address], [facility] 10/23/2015 05:56:18 Cystourethroscopy completed Reena vasquez MA [facility] 07/31/2019 09:24:53 Imaging Results None recorded. Procedure Notes None recorded. Medical Equipment None Reported. Allergies Allergen ID Allergen Name Allergen Category Reaction Reaction Severity Criticality Documentation Date Start Date Code Code System Note Provider Name and Address Organization Details Recorded Time 37071 clotrimaz ole medicatio n rash Not available Not available 09/05/2017 2623 [facility] 08:52:32 89370 benzalkon ium chloride medicatio n itching severe high 05/14/2023 1379 [facility] 3 10:21:24 16077 hazelnut allergeni c extract food rash mild low 11/23/2024 42738 3 RxNorm posit chance skin test Randolph Mckoy MD [address], [address], [facility] 5 15:39:03 75276 celery food other Not available low 11/23/2024 61858 UNK heart burn and posit chance skin testi ng Randolph Mckoy MD [address] [address], [place], [address], [facility] 5 15:39:47 41358 pineapple extract food other Not available low 11/23/2024 67712 74 RxNorm 1+ skin testi ng, mild facia l/lip react ion Randolph Mckoy MD [address] [facility] [address], [place], [address], [facility] 5 15:40:25 Medications Name Sig Start Date Stop Date Status Note LastModified by Organization Details LastModified Time methocarb olvin 500 mg tablet 1 table AT BEDTIME as needed 2013 active Pt requests refill ..does an appt schedule d you for 05/04 Not Available Not Available Not Available Aviane 0.1 mg-20 mcg tablet 11/29 completed Not Available Not Available Not Available azithromy rik 250 mg tablet TAKE 2 TABLETS BY MOUTH TODAY, THEN TAKE 1 TABLET DAILY FOR 4 DAYS DIRECTED 01/28 completed Not Available Not Available Not Available valacyclo vir 1 gram tablet 09/05 completed Not Available Not Available Not Available medroxypr ogesteron e 2.5 mg tablet 11/29 completed Not Available Not Available Not Available Nystop 100,000 unit/gram topical powder Apply 1 applicat ion twice a day by topical route as directed for 30 days. 10/31 completed Not Available Not Available Not Available pimecroli mus 1 % topical cream APPLY A THIN LAYER TO THE AFFECTED AREA(S) BY TOPICAL ROUTE 2 TIMES PER DAY ; RUB IN GENTLY AND COMPLETE LY 01/28 completed Not Available Not Available Not Available meclizine 12.5 mg tablet Take 1 tablet 3 times a day by oral route for 10 days. 11/29 completed Not Available Not Available Not Available estradiol -norethin drone acet 1 mg-0.5 mg tablet TAKE 1 TABLET BY MOUTH EVERY DAY 11/23 completed Not Available Not Available Not Available sulfameth oxazole 800 mg-trimet hoprim 160 mg tablet TAKE 1 TABLET BY MOUTH EVERY 12 HOURS FOR 5 DAYS 12/10 completed Not Available Not Available Not Available tramadol 50 mg tablet active Not Available Not Available Not Available triamcino lone acetonide 0.1 % topical cream APPLY A THIN LAYER TO THE AFFECTED AREA(S) 2 TIMES PER DAY NEEDED 12/08 completed Not Available Not Available Not Available meloxicam 7.5 mg tablet Take 1 tablet twice a day by oral route as directed for 30 days. 11/14 completed Not Available Not Available Not Available lorazepam 0.5 mg tablet Take 1 tablet every day by oral route as needed for 30 days. 07/31 completed Not Available Not Available Not Available estradiol 1 mg tablet 11/29 completed Not Available Not Available Not Available amitripty line 10 mg tablet PLEASE SEE ATTACHED FOR DETAILED DIRECTIO NS 11/23 completed Not Available Not Available Not Available benzonata te 100 mg capsule TAKE 1 CAPSULE BY MOUTH THREE TIMES A DAY FOR 2 WEEKS 01/28 completed Not Available Not Available Not Available pantopraz ole 40 mg tablet,de layed release active Not Available Not Available Not Available acyclovir 5 % topical ointment 11/14 completed Not Available Not Available Not Available clotrimaz ole-betam ethasone 1 %-0.05 % topical cream APPLY TO THE AFFECTED AND SURROUND ING AREAS OF SKIN BY TOPICAL ROUTE 2 TIMES PER DAY IN THE MORNING AND EVENING FOR 2 WEEKS 09/05 completed Not Available Not Available Not Available lidocaine 5 % topical patch 09/05 completed Not Available Not Available Not Available gabapenti n 300 mg capsule active Not Available Not Available Not Available mupirocin 2 % topical ointment Apply 1 applicat ion every day by topical route as needed for 14 days. 11/14 completed Not Available Not Available Not Available lorazepam 1 mg tablet TAKE 1 TABLET(S ) TWICE A DAY BY ORAL ROUTE NEEDED FOR 14 DAYS. 10/05 completed Not Available Not Available Not Available ibuprofen 600 mg tablet TAKE 1 TABLET BY MOUTH 3 TIMES A DAY NEEDED FOR 30 DAYS 08/20 completed Not Available Not Available Not Available ondansetr on 4 mg disintegr ating tablet active Not Available Not Available Not Available drospiren one 3 mg-ethiny l estradiol 0.03 mg tablet TAKE 1 TABLET BY MOUTH EVERY DAY 07/31 completed Not Available Not Available Not Available amoxicill in 875 mg-potass ium clavulana te 125 mg tablet 02/04 completed Not Available Not Available Not Available estrogens , conjugate d, synthetic A 0.3 mg tablet Take 1 tablet every day by oral route. 11/23 completed vitamin E, Diindoly methane, black cohosh, ashwagan da root, stinging nettle, brussel sprouts, chaste tree, turmeric , sea kelp, white cabbage, calcium gluconat e, black pepper Not Available Not Available Not Available escitalop harjinder 10 mg tablet Take 1 tablet every day by oral route for 7 days. 10/05 completed Not Available Not Available Not Available escitalop harjinder 20 mg tablet Take 1 tablet every day by oral route for 30 days. 10/05 completed Not Available Not Available Not Available cyclobenz aprine 5 mg tablet Take 1 tablet 3 times a day by oral route as directed for 5 days. 11/14 completed Not Available Not Available Not Available zinc one a day active Not Available Not Available No t Available Trace Minerals 1 daily 01/28 completed iodine, zinc, selenium , copper, manganes e, chromium , molybden um, trace mineral complex, boron Not Available Not Available Not Available multivita min 1 tab daily orally active Not Available Not Available No t Available cholecalc iferol (vitamin D3) 25 mcg (1,000 unit) tablet Take by oral route. 11/29 completed RECORDED 01/20/20 14 3:33PM BY ALO RICHMOND, OFFICE VISIT; Not Available Not Available Not Available Fish Oil 300 mg-1,000 mg capsule Take 1 capsule every day by oral route. active Not Available Not Available No t Available cholecalc iferol (vitamin D3) 50 mcg (2,000 unit) capsule Take 1 capsule every day by oral route. active Not Available Not Available No t Available lidocaine 5 % topical ointment 09/05 completed Not Available Not Available Not Available Vicodin 5 mg-300 mg tablet Take 1 tablet every 4 hours by oral route as directed for 5 days. 05/17 completed Not Available Not Available Not Available paroxetin e mesylate (menopaus al symptoms suppressa nt) 7.5 mg capsule Take 1 capsule every day by oral route. 12/08 completed Not Available Not Available Not Available Liver Complex 250 mg-250 mg tablet Take 2 tablets every day by oral route. active Not Available Not Available No t Available Adrenal Optimizer 1 tab once daily active zinc, copper, manganes e, l-theani ne, l-tyrosi ne, ashwagan da root, grass fed dessicat ed adrenal substanc e (bovine) , yeast, licorice powder Not Available Not Available Not Available Vitals Date Recorded Body height Provider Name an d Address Organization Details Last Updated DateTime 07/29/2023 167.01 cm Serena Lynn LPN [facility] 07/29/2023 13:53:29 Date Recorded Body height Body mass index (BMI) Body weight Heart rate Oxygen saturation Oxygen saturation in Arterial blood by Pulse oximetry Body temperature Systolic blood pressure Diastolic blood pressure Provider Name and Address Organization Details Last Updated DateTime 4 167.01 cm 29.9 kg/m2 85470 g 83 /min 98 % 98 % 95 [degF] 134 mm[Hg] 83 mm[Hg] Arelis Mercer [facility] 4 11:26:32 Date Recorded Body height Body mass index (BMI) Body weight Heart rate Oxygen saturation Oxygen saturation in Arterial blood by Pulse oximetry Body temperature Systolic blood pressure Diastolic blood pressure Provider Name and Address Organization Details Last Updated DateTime 5 167.01 cm 30.9 kg/m2 53354.9 5 g 75 /min 97 % 97 % 98.2 [degF] 122 mm[Hg] 75 mm[Hg] Serena [facility] L[facility] 5 15:10:30 Date Recorded Body height Body mass index (BMI) Body weight Heart rate Oxygen saturation Oxygen saturation in Arterial blood by Pulse oximetry Body temperature Systolic blood pressure Diastolic blood pressure Provider Name and Address Organization Details Last Updated DateTime 4 167.01 cm 29.6 kg/m2 87165.8 1 g 83 /min 98 % 98 % 97.5 [degF] 132 mm[Hg] 82 mm[Hg] Reena jaquez MA [facility] 4 14:07:39 Date Recorded Systolic blood pressure Diastolic blood pressure Provider Name and Address Organization Details Last Updated DateTime 05/14/2023 126 mm[Hg] 82 mm[Hg] Bakari Cabrera PA-C [address], [address], [facility] 05/14/2023 11:04:36 Date Recorded Body height Body mass index (BMI) Body weight Heart rate Oxygen saturation Oxygen saturation in Arterial blood by Pulse oximetry Body temperature Systolic blood pressure Diastolic blood pressure Provider Name and Address Organization Details Last Updated DateTime 3 167.01 cm 30 kg/m2 02127.8 g 76 /min 98 % 98 % 97.5 [degF] 153 mm[Hg] 87 mm[Hg] Serena Lynn LPN [facility] 3 10:17:21 Social History Question Answer Notes LastModified by Organizat ion Details LastModified Time Tobacco Smoking Status Never Smoker Not Available [facility] 05/23/2020 03:36:40 Do You Have An Advance Directive? No HCP Not Established, Discussed [id number] Information not available 05/23/2020 Is Blood Transfusion Acceptable In An Emergency? Yes [id number] Information not available 05/23/2020 What Is Your Level Of Caffeine Consumption? Occasional 2 X Week Information not available 01/29/2024 How Much Tobacco Do You Chew? None [id number] Information not available 05/23/2020 What Type Of Diet Are You Following? REGULAR [id number] Information not available 05/23/2020 Which Illicit Or Recreational Drugs Have You Used? None [id number] Information not available 05/23/2020 Education 2 Year College Information not available 08/17/2014 Live Alone Or With Others? With Others (Saeed), Dog And Cat Information not available 08/17/2014 Do You Take Precautions To Prevent Distracted Driving? Yes Information not available 10/16/2015 How Often Do You Need To Have Someone Help You When You Read Instructions, Pamphlets, Or Other Written Material From Your Doctor Or Pharmacy? Never Information not available 10/16/2015 Have You Served In The ? No Information not available 11/29/2016 Have You Or Anyone In Your Household Had Any Of The Following Symptoms In The Last 14 Days: Sore Throat, Cough, Chills, Body Aches For Unknown Reasons, Shortness Of Breath For Unknown Reasons, Loss Of Smell, Loss Of Taste, Fever At Or Greater Than 100 Degrees Fahrenheit? No Information not available 10/05/2020 Are You Or Anyone In Your Household A Health Care Provider Or Emergency Responder? No Information not available 10/05/2020 To The Best Of Your Knowledge Have You Been In Close Proximity To Any Individual Who Tested Positive For COVID-19? No Information not available 10/05/2020 *AWV ONLY* Are You Presently Prescribed Opioid Medication By PCP Or Specialist? If YES -Provider Assess The Benefit For Other, Non-opioid Pain Therapies Instead, Even If The Patient Does Not Have OUD But Is Possibly At Risk. No Information not available 10/05/2020 Have You Recently Traveled To A COVID-19 High Risk Area Or Gathering In The Last 10 Days? No Information not available 10/05/2020 What Was The Date Of Your Most Recent Tobacco Screening? 11/23/2024 [email or web address] Information not available 11/23/2024 How Many Children Do You Have? 0 [id number] Information not available 05/23/2020 Seat Belts Used Routinely Yes Information not available 08/17/2014 Are You Sexually Active? Yes [id number] Information not available 05/23/2020 Smoke Alarm In Home Yes Information not available 09/05/2017 At What Age Did You Start Smoking Tobacco? 1 [id number] Information not available 05/23/2020 Are You Passively Exposed To Smoke? No Information not available 08/17/2014 How Much Tobacco Do You Smoke? No [id number] Information not available 05/23/2020 Do You Use Sunscreen Routinely? Yes [id number] Information not available 05/23/2020 How Many Years Have You Smoked Tobacco? 0 [id number] Information not available 05/23/2020 Sex: Unknown Functional Status Question Answer Note LastModified by Organizat ion Details LastModified Time Do you use any illicit or recreational drugs? No Information not available 12/10/2021 Do you or have you ever used any other forms of tobacco or nicotine? No Information not available 12/10/2021 What is your level of alcohol consumption? Occasional [id number] Information not available 05/23/2020 Do you or have you ever used smokeless tobacco? Never used smokeless tobacco [id number] Information not available 05/23/2020 Are you currently employed? Yes Information not available 01/29/2024 Are you able to walk? YESWOREST Information not available 12/10/2021 Are you able to care for yourself? Yes [id number] Information not available 05/23/2020 What is your occupation? Other [employer] Information not available 12/17/2024 Do you or have you ever used e-cigarettes or vape? Never used electronic cigarettes [id number] Information not available 05/23/2020 What is your exercise level? Moderate walking dog 1 x daily Information not available 01/29/2024 Mental Status None recorded. Family History Relationship Description Onset Age of this Age Resolved Age Notes LastModified by Organization Details LastModified Time Maternal Aunt Diabetes mellitus [email or web address] Not available 08:57:13 Maternal Aunt Malignant tumor of breast [email or web address] Not available 08:57:13 Father Cirrhosis of liver 82 [email or web address] Not available 10/2019 11:48:48 Father Carcinoma in situ of pancreas 82 [email or web address] s Not available 04/06/2019 09:38:49 Mother Hypercholest erolemia awychowski Not available 10/05 14:25:33 Medical History Condition Response Coronary Artery Disease N Other N Gout N Kidney Stones N Blood Diseases N Hyperthyroidism N Breast Cancer N mrsa exposure N Hypothyroidism N Depression N COPD N Lung Disease N Developmental or Behavioral Disorders N Defects or Inherited Disease N Breast Problem N Anesthesia Complications N Headaches/Migraines N Varicose Veins N Anxiety Disorder N Muscle, Joint, or Bone Problems Y Obesity Y Vision or Eye Problems N Arthritis N Head Injury/Concussion N Polyps N Infertility N Mental Disorder N Congenital Anomalies N Acid Reflux (GERD) N Cancer N Stroke N ADHD N Endometriosis N High Cholesterol Y Liver Disease N Headaches N Fibromyalgia N Kidney Disease N Heart Problems N Ear or Hearing Problems N Hospitalizations N Thyroid Problems N GI Problems Y Developmental Delay N Acne N Skin Problems N Eating Disorder N Anemia N Constipation N Bladder Problems N Mental Illness N Ovarian Cancer N Diabetes N Bedwetting N Blood Transfusions N Seizures/Epilepsy N Heart Problems/Murmur N Tuberculosis N AIDS/HIV N Congestive Heart Failure (CHF) N Eczema N Diverticulitis N Abuse/Domestic Violence N Asthma N Allergies Y Reflux/GERD Y Hepatitis N Heart Disease N Pulmonary Embolism N Hypertension N Chicken Pox N Autism Spectrum Disorder (ASD) N Osteoporosis N Gynecological History Statement/Question Response Date of Last Pap Smear 08/03/2020 Date of Last Colonoscopy 08/13/2013 Most Recent Mammogram 04/23/2021 Most Recent Bone Density Obstetrics History GPAL:G 0 P 0 0 0 0 Immunizations Vaccine Type Date Status Note Provider Nam e and Address Organization Details Recorded Time Influenza, split virus, quadrivalent, PF 09/05/19 18 cancelled patient objection Not Available [facility] 08/07/2019 02:22:08 Influenza, split virus, quadrivalent, PF 06/30/20 18 cancelled patient objection Not Available [facility] 08/07/2019 02:22:16 Tdap 01/16/20 13 completed Not Available [facility] 02/01/2014 13:51:17 zoster recombinant 10/06/19 21 cancelled patient objection Randolph Mckoy MD [address], [address], [facility] 10/05/2020 14:54:00 Past Encounters Encounter ID Performer Location Encounter Start Date Encounter Closed Date Diagnosis/Indication Diagnosis SNOMED-CT Code Diagnosis ICD10 Code Diagnosis Note [id number] autoEComm erce [address] [facility], [address] [place] [address] 01/15/2013 00:00:00 [id number] autoEComm erce [address] [facility] [address] [place] [address] 04/15/2013 00:00:00 [id number] autoEComm erce [address] [facility] [address] [place] [address] 01/19/2014 00:00:00 [id number] Randolph Mckoy MD Main Office [address] [address] 05/04/2014 11:14:17 05/04/2014 12:20:32 Low back pain 197145793 Given duration of pain and preceeding fall will image to rule out spinal nerve impingemen t as cause. A component of it seems SIJ meditated so will refer to PMR an provide note to allow for more comfortabl e seating at work. Knee pain 50583100 Sound s tendinous but given chronicity will as ortho for opinion. [id number] ALEXANDRIA Levi Main Office [address] [address] [place] [address] 05/12/2014 10:45:50 05/12/2014 11:47:30 Low back pain 486680582 MRI scheduled for tonight at 7pm, please keep this appt. Work note given Continue meds as prescribed . Backache 281697748 with radicular symtpoms. Started 2-3 days ago. She is already on ibuprofen and robaxin. Will add vicodin PRN, may tyr massage to area, heat to area, stretches, meds as prescribed . [id number] Randolph Mckoy MD Main Office [address] [place] [address] 08/17/2014 14:34:10 08/17/2014 16:08:21 Adult health examination 579126114 Immunizati on status utd short of flu which pt declines. Regular dental and ophtho care advised as well as seatbelt and sunscreen use. Distracted driving discussed. 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 Advance directives discussed, form provided. Body mass index 25-29 - overweight 713524844 Achilles tendinitis 36598037 Call if persistent /worse. [id number] ALEXANDRIA Levi Main Office [address] [place] [address] 02/09/2015 16:14:21 02/09/2015 17:03:44 Fatigue 27249389 Patient presents with multiple complaints fatigued, feeling weird skin sensations . Will get blood work. Recommend lots of fluids, sleeping at least 6-8 hours per night, well balanced meals, exercise 3-4 times weekly. 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 Loose stool 230725149 c/ o loose stool since her colonoscop y, has been ongoing issue, likely IBS due to high stress job etc, she has not tried eliminatin g foods from her diet. Recommend she f/u with Dr. Arce. Neck pain 86485243 Likel y muscular, though patient states it does not feel like muscle tension, she feels it is more of a gland. No lymphadeno benito, thyroid normal, palpable muscle tension to neck and shoulder. Declines muscle relaxer, [id number] Randolph Mckoy MD Main Office [address] [address] [place] [address] 05/31/2015 15:11:08 05/31/2015 16:23:46 Low back pain 219819743 M54.5 Stable. Will monitor for now. Hypercholesterolemia 136 21477 E78.2 manager terminal potential health consequenc es discussed. Current 10 yr CV risk is <2%. TLC discussed/ advised. Will follow. Hypertriglyceridemia 302 774331 E78.1 Reduction of CHO intake, increased fiber intake, regular ezercise and weight loss advised. Printed info provided. Hirsutism 293665970 L68. 0 Reassuranc e provided along with derm referral if she desires to pursue topical or elective treatments . Verruca plantaris 309677 08 B07.0 [id number] Randolph Mckoy MD Main Office [address] [address] [place] [address] 06/26/2015 10:44:45 06/26/2015 11:54:07 Indigestion 220326426 R10.13 Following stress and dietary factors whihc are better. Will try weaning off of PPI and if recurrent or dysphagia develops refer back to GI. Eosinophil ic esophagitis 957273006 K20.0 Knee pain 02412876 M25.5 62 Maury refer back to ortho given persistenc e. Work note provided. Anxiety state 721960076 F41.1 Will refer for therapy. [id number] Randolph Mckoy MD Main Office [address] [place] [address] 09/07/2015 09:50:30 09/07/2015 10:42:49 Upper respiratory infection 50459688 J06.9 Supportive /symptomat ic OTC treatment advised. Call if not slowly improving or worse over the next 3-5 days. Signs/symp toms of potential secondary bacterial infection discussed and pt advised to julianne if noted. Influenza- like illness 02246470 B34.9 Based on risk category and duration of symptoms, antiviral therpay deferred. [id number] Randolph Mckoy MD Main Office [address] [place] [address] 10/16/2015 14:44:09 10/16/2015 15:43:11 Adult health examination 375184980 Z00.00 Immunizati on status utd short of flu which pt declines. Cervical cancer screening utd. Regular dental and ophtho care advised as well as seat belt and sunscreen use. Distracted driving discussed. Advance directives discussed, form provided. Body mass index 25-29 - overweight 786278081 Z68.29 Hypertriglyceridemia 302 334643 E78.1 Reduction of CHO intake, increased fiber intake, regular exercise and weight loss advised. Screening for malignant neoplasm of breast 439605920 Z12.39 [id number] Bakari Cabrera PA-C Main Office [address] [place] [address] 11/13/2015 08:42:09 11/13/2015 09:40:03 Dizziness 687504717 R42 Benign par oxysmal positional vertigo 520302884 H81.10 [id number] ALEXANDRIA Levi Main Office [address] [address] 09/05/2016 14:17:49 09/05/2016 15:09:41 Neck pain 34360808 M54.2 XR today, heat 4 times daily, meloxicam and flexeril as prescribed -no driving or alcohol with med, gentle stretching as tolerated. Thoracic back pain 30422 8004 M54.6 Muscle spasm noted, heat 4 times daily, meds as prescribed , stretching as tolerated. Foot pain 70399997 M79.6 71 Pain to dorsal foot, XR today. [id number] Randolph Mckoy MD Main Office [address] [address] 11/29/2016 14:10:04 11/29/2016 15:25:47 Adult health examination 060682683 Z00.00 Immunizati on status utd short of flu which pt declines. Cervical cancer screening utd. Regular dental and ophtho care advised as well as seat belt and sunscreen use. Distracted driving discussed. Advance directives discussed, form provided. Body mass index 30+ - obesity 461724331 Z68.30 E66.9 Screening for malignant neoplasm of breast 888005965 Z12.39 Pt will schedule and call with any problems arranging. Hypercholesterolemia 136 60788 E78.2 manager terminal potential health consequenc es discussed. Current 10 yr CV risk is <2%. TLC discussed/ advised. Will follow. Eosinophil ic esophagitis 236240977 K20.0 Found on bx, pt reluctant to pursue any treatment. Has GI care establishe d and was encouraged to follow up if symptoms persists/w mitchen and she is willing to try meds. Shoulder joint pain 2679 65979 M25.519 Call for PT referral inb/worse Knee pain 50306194 M25.5 62 Maury refer back to ortho given persistenc e. [id number] Randolph Mckoy MD Main Office [address] [address] [place] [address] 05/16/2017 08:20:24 05/16/2017 08:55:36 Intertrigo 27484146 L30.4 Suspicious for candidal intertrigo . Based on discomfort /inflammat ion will also cover with topical steroid. Call inb/worse. Plantar wa rt of right foot [id number] 1621110 B07.0 Will refer to derm. OTC treatments discussed/ advised as well. [id number] ALEXANDRIA Levi Main Office [address] [facility] [address] [place] [address] 09/05/2017 08:28:32 09/05/2017 09:23:56 Immunization refused 904726541 Z28.21 Foot pain 45656755 M79.6 73 bilateral 4th toe with small palpable ? node. XR bilaterall y and referral to podiatry. recommend comfortabl e shoes with good support. Fall W19.XXXA Knee pain 26910246 M25.5 62 left, improved, she declines XR today. iburpofen TID with food Low back pain 999898033 M54.5 right sides + spasm, will tx with cyclobenza darline as needed, heat 4 times daily, stretches as tolerated. [id number] Randolph Mckoy MD Main Office [address] [facility] [address] [place] [address] 11/14/2017 13:18:34 11/14/2017 14:14:08 Pain in right foot 4188840451 32057 M79.671 ? If related to lumbar radiculopa thy vs tarsal tunnel syndrome. Did not tolerate/r espond well to gabapentin in the past. WIll as PMR for f/u and pt will continue to see podiatry as well. Disorder o f lumbar disc 605984831 M51.9 [id number] Randolph Mckoy MD Main Office [address] [facility] [address] [facility] [place] [address] 06/30/2018 14:12:50 06/30/2018 15:17:56 Adult health examination 899611577 Z00.00 Immunizati on status utd short of flu which pt declines. Breast and colon cancer screening utd. Regular dental and ophtho care advised as well as seat belt and sunscreen use. Distracted driving discussed. Advance directives discussed again. Screening for malignant neoplasm of cervix 203894911 Z12.4 Overdue. Pt to contact gynecologi felix. Needs infl uenza immunization 159786897 Z23 Ganglion cyst 65619492 M 67.40 Wants to see a different potato loader . Body mass index 30+ - obesity 434131097 Z68.30 E66.9 Screening for malignant neoplasm of breast 905306467 Z12.39 Hypercholesterolemia 136 40777 E78.2 manager terminal potential health consequenc es discussed. Current 10 yr CV risk is <2%. TLC discussed/ advised. Will follow. Eosinophil ic esophagitis 974209006 K20.0 Found on bx, pt reluctant to pursue any treatment. Has GI care establishe d and was encouraged to follow up if symptoms persists/w mitchen and she is willing to try meds. Anterior c hest wall pain 717723850 R07.89 Likely soft tissue but will image to rule out rib injury. Supportive tx advised in meantime. Call inb/worse or if new symptoms develop. [id number] Charles Jewell MD Main Office [address] [facility] [address] [place] [place] [address] 02/04/2019 13:26:16 02/04/2019 14:40:23 Fatigue 24877685 R53.83 blood sugar normal. her sx may be stress related. Insomnia 741444308 G47.0 0 not sleeping well lately and very stressed. lorazepam as needed, no driving or alcohol with med. Feeling stressed 6924787 06 Z73.3 she will call if sx worsen [id number] Charles Jewell MD Main Office [address] [address] [place] [address] 04/06/2019 09:24:28 04/06/2019 10:23:46 Pain of multiple joints 90305347 M25.50 Fatigue 01345858 R53.83 Paresthesi a of lower extremity 585559743 R20.2 Abdominal pain 32893722 R10.9 Eruption 458913860 R21 Adjustment disorder with depressed mood 76545286 F43.21 her father in february which has caused a lot of stress between traveling and his estate/ family problems. [id number] Charles Jewell MD Main Office [address] [address] [place] [address] 07/24/2019 09:22:27 07/24/2019 10:10:57 Generalized anxiety disorder 47483279 F41.1 Major depr essive disorder 387254844 F32.1 [id number] Randolph Mckoy MD Main Office [address] [address] [place] [address] 07/31/2019 09:15:34 07/31/2019 10:15:51 Moderate major depression, single episode 72647925 F32.1 Symptoms are overriding her ability to function and enjoy life. Advised to start medication and establish care with therapist. Will call with any problems. >25 min with patient. Anxiety state 938644360 F41.1 Will refer for therapy. Insomnia 555144229 G47.0 1 trazodone offered/de clined. Sleep hygeine discussed. Pt reluctant to try meds. [id number] Randolph Mckoy MD Main Office [address] [address] [place] [address] 10/05/2020 12:57:25 10/05/2020 15:04:54 Adult health examination 946903863 Z00.00 Immunizati on status utd short of flu which pt declines. Breast and colon cancer screening utd. Regular dental and ophtho care advised as well as seat belt and sunscreen use. Distracted driving discussed. Advance directives discussed again. Varicella vaccination 68 630939 Z23 Anxiety state 555073540 F41.1 Not limiting. Will monitor. Hypercholesterolemia 136 22338 E78.2 FPC potential health consequenc es discussed. Current 10 yr CV risk is <2%. TLC discussed/ advised. Will follow. Screening for malignant neoplasm of breast 089768950 Z12.39 Screening for malignant neoplasm of cervix 251893956 Z12.4 Done recently per pt. Will request report. Body mass index 30+ - obesity 644677533 E66.9 Z68.31 Elevated blood-pressure reading without diagnosis of hypertension 563880968 R03.0 Better on recheck. Intertrigo 67563949 L30. 4 Suspicious for candidal intertrigo . Based on discomfort /inflammat ion will also cover with topical steroid. Call inb/worse. Major depr ession single episode, in partial remission 75857003 F32.4 Symptoms are overriding her ability to function and enjoy life. Advised to start medication and establish care with therapist. Will call with any problems. >25 min with patient. [id number] Justina Roy MD Main Office [address] [facility] [address] [facility] [place] [address] 10/31/2020 12:47:38 10/31/2020 13:47:16 Menopausal symptom 50511531 N95.1 Given that the patient's symptoms occurred after stopping HRT, I suspect symptoms are likely due to postmenopa usal symptoms we discussed the medical options available, patient was taken off of HRT has there is a family history of breast cancer, and she has been on it 2 years postmenopa usal. We discussed options of starting paroxetine which is approved for menopausal symptoms. Patient agreed to try this. In addition patient was also advised that she can further discuss other hormone modulatory treatment with her gynecologi st.She was advised to stop if she develops any homicidal, suicidal ideation. Although rare hyponatrem ia can occur with SSRI use patient is stable on this dose a BMP can be considered afterwards . Anxiety state 022323781 F41.1 [id number] Charles Jewell MD Main Office [address] [facility] [address] [facility] [place] [address] 12/08/2020 12:57:55 12/08/2020 13:40:30 Anxiety state 884980962 F41.1 Declines prescripti on for medication , declines therapist just feels a lot of stress and anxiety. Pain of ri ght shoulder joint [id number] 1707455 M25.511 will refer to ortho, she will call to schedule. states she will have XR done there. Pain of le ft hip joint 6516320464 40883 M25.552 XR today, state she will schedule appt when she is seen at [facility] for her shoulder. [id number] Randolph Mckoy MD Main Office [address] [facility] [address] [place] [address] 08/20/2021 10:59:11 08/20/2021 11:37:29 Increased frequency of urination 243466081 R35.0 Possible UTI vs acute cystitis flare vs stones. Will need imaging/ur ology referral if hematuria or symptoms otherwise persist and no infection found. Blood in urine 74090395 R31.9 Seen on dipstick. Will see what UA and culture shows. Refer for imaging if this is confirmed and no UTI present. [id number] Randolph Mckoy MD Main Office [address] [facility] [address] [place] [address] 12/10/2021 13:36:08 12/10/2021 14:47:38 Adult health examination 918284890 Z00.00 Immunizati on status utd short of flu which pt declines. Shingrix advised via local pharmacy. Refusing COVID 19 vaccine despite counseling on it's safety and effectiven ess. Breast and colon cancer screening utd. Regular dental and ophtho care advised as well as seat belt and sunscreen use. Distracted driving discussed. Advance directives discussed again. Anxiety state 291065749 F41.1 Not limiting. Will monitor. Moderate m ajor depression, single episode 78499904 F32.1 Symptoms are overriding her ability to function and enjoy life. Advised to consider starting medication and establish care with therapist. Screening for malignant neoplasm of breast 533046947 Z12.39 Will track down recent mammo from [facility]. Screening for malignant neoplasm of colon 077398204 Z12.11 Due for f/u in 2023. Establishe d with GI. 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 WIll trach down recnt UGI. Pt has EDG scheduled. Has GI care [facility] and was encouraged to follow up if symptoms persists/w mitchen and she is willing to try meds. Impaired f asting glycemia 627582830 R73.01 Elevated blood-pressure reading without diagnosis of hypertension 324456108 R03.0 Better on recheck, will monitor. 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 [address] [facility] [place] [address] 07/29/2023 13:31:21 07/29/2023 14:52:03 Cough 84580108 R05.9 advised pt to go to pharmacy - pickling grader abx and covid home testtest for covid at home - if negative, then begin abx as directed since feeling like she is getting worse (as compared to yesterday) - if positive, then call our office - will send in rx for paxlovid, and do not take abxcontinu e otc / supportive care as dir - stay well hydrated, rest, etc Pneumonia 370666410 J18. 9 see above Counseling 442577273 Z71 .9 Health advice, education or counseling done for COVID 19 [id number] SAI RAY Main Office [address] [facility] [address] [place] [address] 08/21/2023 11:19:58 08/21/2023 11:54:53 Persistent cough 693265383 R05.3 x3 weeks of a persistent dry cough that is worse at night-marilin es of any URI symptoms, no chest pain or SOB-takes cough drops which provides some relief-dayne gs were CTAB-will provide benzonatat e; discussed proper usage, side effects, and to call the office if no improvemen ts [id number] Randolph Mckoy MD Main Office [address] [facility] [address] [place] [address] 01/29/2024 13:54:03 01/29/2024 14:54:55 Prediabetes 786929262 R73.03 Anxiety state 286216364 F41.1 Currently coping with stressor load and symptoms, discussed mediation options for this and hot flashes but pt declines for now. Steatotic liver disease K76.0 Will monitor labs Erythrocytosis 510409699 D75.1 Normal Jak2/EPO testing, with insomnia wonder if CHERRI may be a factor. Will monitor/re assess. Consider sleep study Insomnia 113887181 G47.0 1 trazodone offered/de clined. Sleep hygeine discussed. Pt reluctant to try meds, but using CBD with some benefit. Moderate r ecurrent major depression 99267779 F33.1 Currently coping with stressor load and symptoms, discussed mediation options for this and hot flashes but pt declines for now. Snoring 43386686 R06.83 With her constellat ion of symptoms screening for sleep disordered breathing is appropriat e. [id number] Randolph Mckoy MD Main Office [address] [facility] [address] [place] [address] 11/23/2024 14:55:16 11/23/2024 15:56:48 Adult health examination 799274096 Z00.00 Needs Tdap and PCV20, Shingrix advised as well. Pt declines flu and COIVD boosters. Breast cancer screening due, and colon cancer screening utd. Regular dental and ophtho care advised as well as seat belt and sunscreen use. Distracted driving discussed. Advance directives discussed again. Body mass index 30+ - obesity 782814316 Z68.30 E66.9 Counseled on approaches to weight loss and mediterran caro diet recommende d. Screening for malignant neoplasm of breast 622450655 Z12.39 Will track down recent mammo from [place]. Anxiety state 950738746 F41.1 Not limiting does not want meds or therapy. Will monitor. Moderate m ajor depression, single episode 47135195 F33.42 No concerning symptoms, will monitor. Screening for malignant neoplasm of colon 480468963 Z12.11 Asymptomat ic and cologuard screening utd. Eosinophil ic esophagitis 983472531 K20.0 Asymptomat ic with better dietary choices. Impaired f asting glycemia 025914265 R73.01 Screening for malignant neoplasm of cervix 940110370 Z12.4 Done recently per pt. Will request report. Administra tion of diphtheria, pertussis, and tetanus vaccine 919895135 Z23 Administra tion of pneumococcal vaccine 20421548 Z23 Varicella vaccination 68 738339 Z23 Insomnia 767855740 G47.0 1 Sleep study warranted based on lack of restful sleep, erythrocyt osis and snoring. Health Concerns Section Related Observation LastModified by Organization Detai ls LastModified Time None Recorded Concern Status LastModified by Organization Details LastModified Time None Recorded Advance Directives Directive N: HCP not established, disc ussed Payers Encounter Date Sequence Insurance Name Policy Number Policy Arceo Covered Member ID Arceo Member ID Guarantor Name 05/14/2023 1 [place] [id number] Linus Clavet [id number] Shelly L Clavet 07/29/2023 1 [place] [id number] Linus Clavet [id number] Shelly L Clavet 08/21/2023 1 [place] [id number] Linus Clavet [id number] Shelly L Clavet 01/29/2024 1 [place] [id number] Linus Clavet [id number] Shelly Ruiz 11/23/2024 1 [place]) [id number] Linus Ruiz [id number] Shelly Ruiz Notes Date Note Type Note Provider Name and Address Organization Details Recorded Time 05/14/2023 text/html here for annual pe. Bakari Cabrera PA-C [address] [address], [place], [address], [facility] 05/14/2023 11:09:10 07/29/2023 text/html pt c/o 4-5 days h/o chest wheezing audible, coughing with yellow phlegm, head congestion/pressure < chest congestion, pressure under eyes no sob, f/c, myalgias, STno home covid testing available (hasn't shopped for it in a long time)has used yusef, alkaseltzer, vicks vaporub, ibu feels worse today than yesterday... Bakari Cabrera PA-C [address] [address], [place], [address], [facility] 07/29/2023 14:46:53 08/21/2023 text/html Shelly is a 57yr old F who presents for a persistent cough x3 weeks. Reports of a dry cough. Notes that the cough occurs throughout the day but is worse at night. Pt does sleep with a humidifier in the room. Denies of any recent URI. No fever, chills, dizziness, sob, chest pain, n/v/d. Nots that cough drops do provide some relief. SAI RAY [address] [address], [place], [address], [facility] 08/21/2023 12:34:20 01/29/2024 text/html Abnormal Liver TestsReported bypatient.Severity:AST :33; ALT:40; Total Bilirubin: 0.8; Alkaline Phosphatase: 111 Duration:present for 1-5 years Onset/Timing:gradual onset; noted on routine blood work Associated Symptoms:no jaundice; no RUQ abdominal painNotes:Had A1c of 5.7 in Jul, liver u/s in 04/16 confirmed fatty liver disease.Anxiety/Depres sionReported bypatient.Quality:mood worse;increased anxiety Severity:able to maintain relationships;interfer ence with sleep;interference with work Duration:frequent; symptoms lasting over 2 weeks Context:major life stressors;family problems;trouble at work;bereavement Associated Symptoms:no significant weight gain; no significant weight loss; no delusions;emotional lability;high irritability;anxiety;d epression;grieving;sle ep disturbances;social withdrawalNotes:She is crying thru the entire appointment. She states that her anxiety and depression worsened during her fathers passing and subsequent loss of her job 2 weeks later. She has not done well since that time. She tried lorazepam around the time of his but stopped taking it because it made her feel angry. She has a lifetime of anxiety especially social anxiety and also some depression. She was treated in the past with zoloft which didn't help. She does not have any family members and finds that her has not been supportive. Prescribed escitalopram by [facility] at last visit but never started it.InsomniaReported bypatient.Severity:mod erate Duration:intermittent Context:using medications for sleep Associated Symptoms:no known sleep apnea; no dyspnea; legs do not feel restless;anxiety;depre ssion Randolph Mckoy MD [address], [address], [facility] 01/30/2024 08:46:07 11/23/2024 text/html Generic HPI TemplateReported bypatient.Notes:Here for a physical, this menopause is kicking my butt . Seeing dentist and ophtho regularly. here for annual pe. Randolph Mckoy MD [address], [address], [facility] 11/23/2024 16:20:26 OBGyn Episode No OBEpisode recorded.
== END 2024-12-20 09:25 | disposition home or self-care (01) ==
LOC: HO.MAMMO 09:24
PROVIDERS: PCP Pediatrics; Visit Provider Pediatrics
DX: Z12.31 Encounter for screening mammogram for malignant neoplasm of breast (principal)
CPT/HCPCS: 77063; 77067

== ENCOUNTER → 2025-02-28 09:30 | Outpatient (BNV) | payer BC, SELFPAY | PROVIDERS: PCP Pediatrics; Visit Provider Internal Medicine | DX: R92.8 Other abnormal and inconclusive findings on diagnostic imaging of breast (principal); N64.89 Other specified disorders of breast | CPT/HCPCS: 77061; 77065 ==

== ENCOUNTER 2025-02-28 09:35 | Outpatient (REF) | payer BC, SELFPAY ==
--- NOTE | ~2025-02-28 | MM_ITS ---
EXAMINATION: MM DIAGNOSTIC DIGITAL BREAST TOMOSYNTHESIS, RIGHT CLINICAL INFORMATION: Call back from screening for asymmetry in the superior right breast on MLO view posterior depth. COMPARISON: Mammography: [facility] on PACS. TECHNIQUE: Digital breast tomosynthesis is performed in both the craniocaudal and mediolateral oblique views along with computer-aided detection (CAD). Synthesized 2D images are generated from the tomosynthesis. FINDINGS: The breasts are heterogeneously dense, which may obscure small masses (ACR BI-RADS breast composition Category c). Previously seen asymmetry in the superior right breast posterior depth on MLO view does not persist on additional imaging projections and likely represented overlapping breast tissue. There are no significant masses, abnormal calcifications, or other abnormalities. MM/MM tomosynthesis added views R IMPRESSION: No mammographic evidence of malignancy. ASSESSMENT: BI-RADS BI-RADS 1 - Negative RECOMMENDATION: 1 year F/U Results were provided to the patient at time of visit by the technologist. This patient's information was entered into a reminder system with a target due date for their next mammogram. Electronically signed by: Lilia Downs DO 02/28/2025 10:13 AM EDT
--- OUTSIDE RECORDS SUMMARY | 2025-02-28 10:03 | XMS_ITS | Patient Health Record ---
Author Organization [facility] Address [address] [place] [address] Care Team Providers Care Food Handler Name Role Phone Randoplh Foreman MD Primary Care Provider Unavail able Jeremiah Robison Unavailable [phone] Allergies Allergen (clinical drug ingredient) Drug/Non Drug Allergy documented on EMR Reaction Allergy Type Onset Date Status Benzalkonium Chloride chemical burn, itching Drug Allergy Active clotrimazole Clotrimazole rash Drug Allergy A ctive Reason For Referral No Information Medications Medication SIG (Take, Route, Frequency, Duration) Notes Start Date End Date Status Shoes . . . Medically necess venu to wear comfortable shoes/sneakers at work; Duration: as needed 07/07/2018 Active Drospirenone-Estradiol 3 mg Not-Taking Multivitamin Active Nystop Active Ibuprofen Active Fish Oil Active Work Note-Appointment . . . Pt had a [facility] appointment today; Duration: . 10/31/2022 Active Immunizations Vaccine Route Administration Date Status Comme nts COVID-19 [employer]alf [employer] Ralf[employer]Jill Unknown 10/01/2021 R efused Social History Tobacco Use: Social History Observation Description Date Details (start date - stop date) Never Smoker NA - NA Tobacco Use/Smoking Question Answer Notes Are you a: nonsmoker Additional Findings: Tobacco Non-User Current no n-smoker Alcohol Screen Question Answer Notes Did you have a drink containing alcohol in the p ast year? Yes Points 0 Interpretation Negative Tobacco use other than smoking: Question Answer Notes Are you an other tobacco user? No Problems Problem Type SNOMED Code ICD Code Onset Dates Problem Status W/U Status Risk Notes Problem Plantar fascial fibromatosis (M72.2) Active confirmed Plan Of Treatment Pending Test Test Name Order Date X ray : Foot, left 3V 10/01/2021 X ray : Foot, left 3V 10/31/2022 X ray : Foot, right 3V 10/01/2021 [id number] Destruction, 1-09/23/2018 [id number] Destruction, -11/09/2018 [id number] TENDON SHEATH/LIGAMENT 0 08/27/201893718,[id number] TENDON SHEATH/LIGAMENT 0 09/23/2018 Insurance Providers Payer Name Payer Address Payer Phone Subscriber Number Group Number Insured Name Patient Relationship to Insured Coverage Start Date Coverage End Date [facility] [address] [place] [address] [id number] Linus Ruiz Spouse - patient is the spouse of the insured Medical (General) History Medical History History ICD Code Anxiety Back,Hip,and Knee pain Cholesterol Lyme disease Warts Chicken pox Insomnia Constipation herpes simplex Reflux ( GERD), Hiatal hernia Hyperlipidemia Hypertriglyceridemia Vertigo Hemorrhoids Hirsutism Knee Pain Surgical History Surgery Date(Month/Year)
--- OUTSIDE RECORDS SUMMARY | 2025-02-28 10:03 | XMS_ITS ---
Author Name [facility] Organization Unknown Care Team Organization Name Specialty Phone Email Start Date End Da te [facility] the [facility] ([facility]) 06/04/2024
== END 2025-02-28 09:36 | disposition home or self-care (01) ==
LOC: HO.MAMMO 09:35
PROVIDERS: PCP Pediatrics; Visit Provider Pediatrics
DX: R92.8 Other abnormal and inconclusive findings on diagnostic imaging of breast (principal)
CPT/HCPCS: 77061; 77065